=== PATIENT | male | born 1945 | race Caucasian/White ===

== ENCOUNTER 2025-09-04 15:20 | Emergency (ER) | payer MEDICARE, OTHER, SELFPAY ==
[2025-09-04 15:21] VITALS: BP 204/115
[2025-09-04 15:28] VITALS: BP 172/96
[2025-09-04 16:00] VITALS: BP 152/89
--- NOTE | 2025-09-04 16:14 | ED.GENMED ---
History of Present Illness
General
Chief Complaint: Blood Pressure Problem
Source: patient and spouse
Exam Limitations: none
Time Seen by Provider: 09/04/25 15:54
Nursing documentation reviewed up to this point in time: agreed with
History of Present Illness
History of Present Illness:
Patient is a 80-year-old male with history hypertension, hyperlipidemia who presents to the emergency department for evaluation of elevated blood pressure. Patient states that he has felt somewhat 'off' for the past week. He reports feeling
intermittently lightheaded as well as generally weak. He also felt flushed earlier today. He took his blood pressure today and states it was extremely elevated up to 170s/90s prompting visit to the emergency department.
He denies any exertional chest pain or shortness of breath. He denies any severe headache however does note a pressure behind his eyes. He denies any unilateral weakness in extremities. No true dizziness sensation or ataxia. No visual changes.
He denies any dysarthria or dysphagia.
Patient take losartan daily. He was previously on a PASTORA inhibitor however this was discontinued after he developed a cough. He has been on losartan for almost 1 year. He is scheduled for a routine visit with his primary care provider this
Friday.
Review of Systems
Review of Systems
Allergies reviewed?: Yes
All Other Systems: ROS reviewed and negative except as documented in HPI and ROS
Phy Exam
Physical Exam
Physical Exam:
Vitals: Hypertensive, otherwise vital signs stable. Afebrile
General: Patient is well appearing, no acute distress
Skin: Warm and dry, no rashes or lesions
Head: Normocephalic, atraumatic
Eyes: Sclera nonicteric. Pupils equal round and reactive to light bilaterally. EOMs intact. No nystagmus.
Throat: Protecting airway
Neck: Normal ROM, no cervical spine tenderness, no meningismus
Cardiac: Regular rate and rhythm, no murmurs.
Pulm: Normal respiratory effort. Lungs clear bilaterally
Abdomen: No abdominal tenderness.
Extremities: No evidence of cyanosis or edema. Strength 5/5 in bilateral upper and lower extremities
Neuro: AAOx3. CN II-XII grossly intact. No facial droop or asymmetry no focal neurologic deficits.
Psychiatric: Normal affect.
Course
Orders/Labs/Results
Orders:
Orders
09/04/25 15:21
EKG [Electrocardiogram (*1)] Urgent
Reason for Study: Hypertension, Benign
EKG- Treatment ONCE
09/04/25 16:13
CT Head W/o Iv Contrast Urgent
Comment:
Reason For Exam: HTN, dizziness
09/04/25 17:06
Basic Metabolic Panel Urgent
COVID-19 Antigen Urgent
Source: Nasal Swab
Complete Blood Count/With Diff Urgent
Troponin I Urgent
Influenza A+B Rapid Molecular Urgent
RAFAELA Source: Nasal Swab
Specimen Description:
Abnormal Lab Results
09/04/25
17:06
RBC 3.93 L 10^6/uL
(4.70-6.10)
Hgb 11.8 L g/dL
(13.0-18.0)
Hct 34.0 L %
(39.0-52.0)
Abs Immat Gran (auto) 0.1 H 10^3/uL
(0-0.05)
Absolute Neuts (auto) 7.7 H 10^3/uL
(1.4-6.5)
Absolute Lymphs (auto) 1.1 L 10^3/uL
(1.2-3.4)
Absolute Monos (auto) 0.9 H 10^3/uL
(0.1-0.6)
Immature Gran % 0.9 H %
(0-0.5)
Neutrophils % 77.5 H %
(42.2-75.2)
Lymphocytes % 11.4 L %
(20.5-51.1)
Monocytes % 9.5 H %
(1.7-9.3)
Sodium 131 L mmol/L
(135-145)
09/04/25 17:06
09/04/25 17:06
Vital Signs
Initial and Last Documented VS:
Initial Vital Signs
Temp Pulse Resp BP Pulse Ox
97.7 F 75 17 204/115 98
09/04/25 15:21 09/04/25 15:21 09/04/25 15:21 09/04/25 15:21 09/04/25 15:21
Last Documented Vital Signs
Temp Pulse Resp BP Pulse Ox
97.7 F 85 16 152/89 96
09/04/25 15:21 09/04/25 16:00 09/04/25 16:00 09/04/25 16:00 09/04/25 16:48
MDM/Problems Addressed
Differential Diagnosis Includes:
Not limited to: Asymptomatic hypertension, hypertensive emergency, acute dehydration, medication, viral illness, etc.
MDM/Problems Addressed:
80-year-old male with hypertension. Intermittent sensation of lightheadedness and facial flushing over the course of the past week. No fevers, exertional chest pain, shortness of breath. No other neurologic symptoms.
Patient hypertensive on arrival, otherwise with stable vital signs.
On exam, patient in no distress. He is alert and oriented without any focal neurologic deficits. Cardio/pulmonary assessment unremarkable. He has palpable and equal radial pulses.
By my assessment, his blood pressure has improved to 172/96.
Basic labs reveal mild hyponatremia with sodium of 131 however, no other acute abnormalities. CT head unremarkable. Troponin negative. Viral studies negative.
Blood pressure has come down to 152/89 without intervention. No evidence of end organ damage on labs.
Ultimately � feel stable for discharge home with continued antihypertensive medication therapy as prescribed and primary care follow-up up as scheduled on Friday. Advised patient to stay well hydrated. Return precautions discussed.
Chronic conditions affecting care:
Hypertension
Acute Exacerbation and/or Progression of Chronic Illness:
Acutely hypertensive
*Radiology
Radiology exam reviewed: radiology read reviewed
*Pulse Oximetry
SaO2: 96
Oxygen Mode of Delivery: Room air
Patient hypoxic: no
*EKG
Interpreted by ED Provider?: Yes
EKG Intrepretation Date: 09/04/25
Interpretation: abnormal
Comparison EKG: no comparison EKG present
Heart Rate: 96
Rate: normal
Rhythm: sinus
[place]: left axis deviation
Interval: normal QT interval
QRS Pattern: normal QRS
Ischemia: no ischemia
*Sewer Connector Interpretation
Rate: Sewer Connector- N/A
*Critical Care Note
Total Time (30-74mins, 75-104mins- exclusive of procedures): Not Applicable
ED Attending Note
-
Portions of this chart may have been created with voice recognition software.� Occasional wrong word or��sound alike� substitutions may have occurred due to the inherent limitations of voice recognition software.
Discharge Plan
Departure
Patient Disposition: Home (Routine Discharge)
Date of Disposition: 09/04/25
Time of Disposition: 18:04
Patient with high blood pressure during this ER visit?: Yes
Condition: Good
Covid-19: Negative COVID-19
Discharge Problem:
Hypertension
Instructions: High Blood Pressure (DC), BLOOD PRESSURE
Referrals:
Mark Alvarado MD [Family Provider] - Keep scheduled appt
Activity Restrictions/Additional Instructions:
RETURN TO THE EMERGENCY DEPARTMENT WITH ANY SEVERE HEADACHE, CHEST PAIN/SHORTNESS OF BREATH, TEARING BACK PAIN, NUMBNESS/TINGLING IN EXTREMITIES, VISUAL CHANGES, WORSENING IN CURRENT SYMPTOMS, OR ANY OTHER CONCERNS
- As discussed�your blood pressure improved without intervention while in the emergency department. You were found to have a mildly low sodium level on your labs today. Please stay well-hydrated and have this repeated with your primary care doctor.
- Continue to take your medications as prescribed. Please take your blood pressure once a day and keep a log.
- Follow-up with your primary care provider on Friday for further evaluation and/or management. You may require changes to your blood pressure medication regimen.
Monitor your symptoms closely and return to the emergency department with any acute worsening/new symptoms or any other concerns
Interventions
Interventions:
*Risk Screen - Suicide Last Done: 09/04/25 15:23
*General Assessment Last Done: 09/04/25 15:23
*Neglect/Abuse Screening Last Done: 09/04/25 15:23
*ED COVID-19 Vaccine History Last Done: 09/04/25 15:23
*ED Influenza Vaccine History Last Done: 09/04/25 15:23
[facility] Risk Assessment Tool Last Done: 09/04/25 17:18
*Nursing Disposition Last Done: 09/04/25 18:37
ED- Cardiac Assessment Last Done: 09/04/25 17:23
ED- Neurological Assessment Last Done: 09/04/25 17:23
ED- Pulmonary Assessment Last Done: 09/04/25 17:23
Discharge Date and Time
Discharge Date/Time: 09/04/25 18:39
Print Language: NAURUAN
[2025-09-04 17:16] LABS: Hematocrit 34.0 % (39.0-52.0); Hemoglobin 11.8 g/dL (13.0-18.0); Mean Corp Hgb Conc. 34.7 g/dL (33.0-37.0); Mean Corpuscular Volume 86.5 fL (80.0-94.0); Nucleated Red Blood Cells % 0 % (-); Platelet Count 225 10^3/uL (130-400); Red Cell Dist. Width 12.9 % (11.5-14.5)
[2025-09-04 17:29] LABS: COVID-19 Antigen Negative (Negative)
[2025-09-04 17:38] LABS: Troponin I < 0.012 ng/ml
[2025-09-04 17:42] LABS: Blood Urea Nitrogen 12 mg/dl (9-20); Calcium 9.1 mg/dl (8.4-10.2); Carbon Dioxide 22 mmol/L (22-30); Chloride 103 mmol/L (98-107); Glucose 95 mg/dl (70-99); Sodium 131 mmol/L (135-145); eGFR > 60.00
== END 2025-09-04 18:39 | disposition home or self-care (01) ==
LOC: EMR 15:20
PROVIDERS: Physician Assistant; EMERGENCY PHYSICIAN Emergency Medicine; FAMILY PHYSICIAN Internal Medicine
DX: I10 Essential (primary) hypertension (principal); E78.00 Pure hypercholesterolemia, unspecified; E87.1 Hypo-osmolality and hyponatremia; Z79.899 Other long term (current) drug therapy
CPT/HCPCS: 99284; 70450; 80048; 84484; 85025; 87502; 87811; 93005